=== PATIENT | female | born 1985 | race Caucasian/White ===

== ENCOUNTER 2020-01-16 15:35 | Outpatient (REF) | payer OTHER, SELFPAY ==
[2020-01-16 16:04] LABS: COVID-19 Test Negative (Negative)
== END 2020-01-16 15:36 | disposition home or self-care (01) ==
LOC: HO.LAB 15:35
PROVIDERS: Visit Provider Internal Medicine
DX: Z20.828 Contact with and (suspected) exposure to other viral communicable diseases (principal)
CPT/HCPCS: 87635

== ENCOUNTER 2020-01-22 16:11 | Outpatient (REF) | payer OTHER, SELFPAY ==
[2020-01-22 17:02] LABS: SARS COV2 PCR INHOUSE POSITIVE (Negative)
== END 2020-01-22 16:12 | disposition home or self-care (01) ==
LOC: HO.LAB 16:11
PROVIDERS: Visit Provider Internal Medicine
DX: Z20.828 Contact with and (suspected) exposure to other viral communicable diseases (principal)
CPT/HCPCS: 87635

== ENCOUNTER 2021-01-28 08:15 | Outpatient (REF) | payer OTHER, SELFPAY ==
[2021-01-28 09:30] LABS: Influenza A PCR NEGATIVE (Negative); Influenza B PCR NEGATIVE (Negative); Resp Syncy Virus RNA Qual PCR NEGATIVE (Negative); SARS COV2 PCR INHOUSE NEGATIVE (Negative)
== END 2021-01-28 08:16 | disposition home or self-care (01) ==
LOC: HO.LAB 08:15
PROVIDERS: Nurse Practitioner Family; Visit Provider Internal Medicine
DX: Z20.822 Contact with and (suspected) exposure to COVID-19 (principal)
CPT/HCPCS: 0241U; 36415

== ENCOUNTER 2021-03-09 09:18 | Outpatient (REF) | payer OTHER, SELFPAY ==
[2021-03-09 09:59] LABS: COVID-19 Test Negative (Negative)
== END 2021-03-09 09:19 | disposition home or self-care (01) ==
LOC: HO.LAB 09:18
PROVIDERS: Visit Provider Physician Assistant Medical
DX: Z20.822 Contact with and (suspected) exposure to COVID-19 (principal); J02.9 Acute pharyngitis, unspecified
CPT/HCPCS: 36415; 87635

== ENCOUNTER 2021-07-21 15:57 | Outpatient (REF) | payer OTHER, SELFPAY ==
[2021-07-21 16:45] LABS: COVID-19 Test Negative (Negative); IDNOW Serial# 16C4AD1C
== END 2021-07-21 15:58 | disposition home or self-care (01) ==
LOC: HO.LAB 15:57
PROVIDERS: Visit Provider Internal Medicine
DX: Z20.822 Contact with and (suspected) exposure to COVID-19 (principal)
CPT/HCPCS: 87635

== ENCOUNTER 2021-12-03 20:55 | Outpatient (REF) | payer OTHER, SELFPAY ==
[2021-12-03 21:53] LABS: HCG Quantitative < 2 mIU/mL
== END 2021-12-03 20:56 | disposition home or self-care (01) ==
LOC: HO.LAB 20:55
PROVIDERS: Visit Provider Physician Assistant Medical
DX: R10.32 Left lower quadrant pain (principal)
CPT/HCPCS: 36415; 84702

== ENCOUNTER 2022-08-15 06:36 | Outpatient (REF) | payer OTHER, SELFPAY ==
[2022-08-15 07:28] LABS: IDNOW Serial# 08D9AD1C; Strep A Nucleic Acid Negative (Negative)
== END 2022-08-15 06:37 | disposition home or self-care (01) ==
LOC: HO.LAB 06:36
PROVIDERS: Visit Provider Physician Assistant Medical
DX: J02.9 Acute pharyngitis, unspecified (principal)
CPT/HCPCS: 87651

== ENCOUNTER 2023-10-09 06:43 | Emergency (ER) | payer OTHER, SELFPAY ==
--- NOTE | ~2023-10-09 | XR_ITS ---
EXAMINATION: XR LUMBOSACRAL SPINE CLINICAL INFORMATION: Lumbar pain COMPARISON: None available. TECHNIQUE: Three views of the lumbosacral spine. FINDINGS: The vertebral bodies and posterior elements are normal. The disc spaces are preserved and the vertebral alignment is normal. The paraspinal soft tissues are normal. Moderate stool burden is present throughout the colon. XR/XR lumbar spine 2-3V IMPRESSION: 1. No acute osseous injury. 2. Moderate stool burden.
[2023-10-09 06:47] VITALS: BP 107/40; PULSE 57; RESP 16; O2SAT 98; BMI 34.2
[2023-10-09] MEDS: Ketorolac Tromethamine 60 MG/2 ML VIAL IM (06:52)
[2023-10-09] MEDS: Cyclobenzaprine HCl 10 MG TABLET PO (07:35)
[2023-10-09 07:36] VITALS: BP 109/68; PULSE 57; RESP 16; O2SAT 98
[2023-10-09 07:54] LABS: Appearance Urine Clear; Color Urine Yellow; Glucose Urine UA Negative (Negative); Leukocyte Esterase Urine Negative (Negative); Nitrite Urine Negative (Negative); PH 7.5 (5.0-9.0); Specific Gravity - Urine >= 1.030 (1.005-1.025); UPreg QC Valid YES; Urine Blood Negative (Negative); Urine Ketones Negative (Negative); Urine Pregnancy NEGATIVE (NEGATIVE); Urine Protein Trace mg/dL (Neg-Trace)
--- NOTE | 2023-10-09 08:49 | PC.NURSE ---
Pt reports improvement and ability to stand when getting xray done, 3/10 at this time. Resting quietly
--- NOTE | 2023-10-09 09:13 | ED.BACK ---
HPI - Back Pain/Injury General Chief Complaint: Back Pain/Injury Stated Complaint: back pain Time Seen by Provider: 10/09/23 06:54 Source: patient Mode of arrival: ambulatory Limitations: no limitations History of Present Illness ED Provider: Dr. Lyon HPI Narrative: Patient presents with severe lumbar pain she thinks secondary to pulling weeds. Patient denies radiation down legs and denies weakness, the pain is fixed to the midline low back. No urinary of fecal incontinence MD elicited complaint: back pain Pertinent past history: prior back pain Onset (ago): day(s) Timing: constant Severity: moderate Related Data Previous Rx's ?Medication ?Instructions ?Recorded cyclobenzaprine 10 mg tablet 10 mg PO TID #10 tabs 10/09/23 naproxen 500 mg tablet (Naprosyn) 500 mg PO BID #20 tabs 10/09/23 Allergies Allergy/AdvReac Type Severity Reaction Status Date / Time No Known Allergies Allergy Verified 10/09/23 06:49 Review of Systems Review of Systems: Yes all other systems are reviewed and are negative Neurologic: Denies Sensory deficit (Neuro) [facility] Social History Social History Advance Directives: No Advance Directives Information Provided: No Do you have a plan to hurt others: No Plan Physical Exam Vital Signs: Vital Signs: Last Vital Signs Pulse 57 10/09/23 07:36 Resp 16 10/09/23 07:36 BP 109/68 10/09/23 07:36 Pulse Ox 98 10/09/23 07:36 O2 Del Method Room Air 10/09/23 07:36 BMI result Body Mass Index 34.2 Const: Other: Patient presents appearing in pain Nutritional Appearance: average body habitus Orientation/consciousness: oriented to person and patient oriented x3 Limitations: no limitations HEENT: Head: Yes normal to inspection Ears: external ears normal General nose exam: Normal external nose present Mouth: Normal oral and palatal mucosa present and oropharynx normal Throat: Yes posterior oropharynx normal Eyes: General: appearance normal, both eyes and all related structures Neck: Other: supple Neck: Yes normal visual inspection Chest: Chest palpation & inspection: normal inspection of the chest Resp: Auscultation: clear to auscultation bilaterally Cardio: Jugular venous distension: no JVD Rate: regular rate Rhythm: regular rhythm Heart sounds: S1 normal heart sound present and S2 normal heart sound present GI: Inspection: Yes normal to inspection Palpation (GI): Soft to palpation, nontender and No hepatosplenomegaly present Auscultation: normal bowel sounds Back/Spine/Pelvis: Other: Mild left SI joint tenderness to palpation, most of the pain is lumbar sacral midline to palpation Skin: General skin exam: no rashes or lesions noted Neuro: General: oriented to person and patient oriented x3 Cranial nerves: Yes CN's II-XII intact bilaterally Motor exam (neuro): 5/5 motor strength present throughout Sensory Exam: No Sensory deficit (Neuro) Extrem: General: Yes normal to inspection Psych: Appearance: grossly normal Course Reevaluation(s) Reevaluation #1: Patient improved with toradol and flexeril, ambulating well Time: 09:17 Medications Administered Discontinued Medications Generic Name Dose Route Start Last Admin Trade Name Freq PRN Reason Stop Dose Admin Cyclobenzaprine HCl 10 mg 10/09/23 07:01 10/09/23 07:35 Cyclobenzaprine Hcl 10 Mg Tablet PO 10/09/23 07:02 10 mg ONCE ONE Administration Ketorolac Tromethamine 60 mg 10/09/23 06:51 10/09/23 06:52 Ketorolac Tromethamine 60 Mg/2 Ml Vial IM 10/09/23 06:52 60 mg ONCE ONE Administration Medical Decision Making Differential Diagnosis Differential Diagnoses: The differential diagnosis associated with the presentation includes (lumbar strain or spasm, radiculopathy, lumbago) Lab Data Labs: Lab Results 10/09/23 Range/Units 07:47 Urine Color Yellow Urine Appearance Clear Urine pH 7.5 (5.0-9.0) Ur Specific [place] >= 1.030 H (1.005-1.025) Urine Protein Trace (Neg-Trace) mg/dL Urine Glucose (UA) Negative (Negative) mg/dL Urine Ketones Negative (Negative) mg/dL Urine Blood Negative (Negative) Urine Nitrite Negative (Negative) Ur Leukocyte Esterase Negative (Negative) Urine Test NEGATIVE (NEGATIVE) Independent Interpretation I performed an independent interpretation of an: Plain X-Ray (no djd there is constipation on xray) Tests considered The following testing was considered but not selected: MRI of spine considered but no neurologic deficits no radicular pain Discharge Plan Discharge Clinical Impression: Strain of lumbar region Patient Disposition: Home, Self-Care Instructions: Acute Low Back Pain (ED) Additional Instructions: Follow up with physical therapy Prescriptions: New cyclobenzaprine 10 mg tablet 10 mg PO TID Qty: 10 0RF naproxen [Naprosyn] 500 mg tablet 500 mg PO BID Qty: 20 0RF Referrals: Physician,Unknown J [Primary Care Provider] - 1 week Print Language: [place]
[2023-10-09 09:37] VITALS: BP 101/50; PULSE 55; RESP 16; TEMP -17.7; TEMP 0; O2SAT 98
== END 2023-10-09 09:38 | disposition home or self-care (01) ==
PROVIDERS: Emergency Provider Emergency Medicine
DX: S39.012A Strain of muscle, fascia and tendon of lower back, initial encounter (principal); Y93.H2 Activity, gardening and landscaping; Y93.9 Activity, unspecified; Y92.9 Unspecified place or not applicable
CPT/HCPCS: 72100; 81003; 81025; 96372; 99284; J1885